=== PATIENT | female | born 1990 | race Caucasian/White ===

== ENCOUNTER 2018-04-09 08:03 | Inpatient (IN) | payer BC ==
--- NOTE | 2018-04-09 08:58 | HP ---
General Information - Reason for Visit gestational hypertension 40 0/7 weeks - General Information Maternal Age: 27 Grav: 2 Para: 0 SAB: 1 IEA: 0 Estimated Due Date: 04/09/18 Determined By: Early Ultrasound Maternal Blood Type and Rh: A Positive - Results this Serology/RPR Result: Non-Reactive Rubella Result: Immune HBsAg Result: Negative HIV Result: Negative GBS Culture Result: Negative Past Medical History Delivery History: See Records Pertinent Past Medical History: See Records Pertinent Past Surgical History: See Records Pertinent Family History: See Records - Antepartal Records Antepartal Records: Reviewed, Complicated by: - gestational hypertension Review of Systems Constitutional: Comfortable CV Complaint: No Respiratory: Shortness of Breath: No Gastrointestinal: No Nausea/Vomiting, Normal Bowel Movement Genitourinary: No Dysuria, No Bleeding Musculoskeletal: No Complaint Neurological: No Headache Movement: Normal Exam Allergies/Adverse Reactions: Allergies penicillin G Allergy (Mild, Verified 04/09/18 07:21) Hives T: 98.4 P: 88 RR: 16 BP :131/69 - Measurements Height: 5 ft 4 in Weight: 202 lb Weight in lbs: 202.543435 Body Mass Index (BMI): 34.7 Pre- Weight: 155 lb Weight Gained This : 47 lbs and 0 ozs - Exam Breast: Breast Exam Deferred CVA: No CVA Tenderness Extremities: No Edema Heart: Normal Rhythm/Heart Sounds HEENT: No Significant Findings Lungs: Clear Bilaterally Rectal: Rectal Exam Deferred Reflexes: DTR 2+ Thyroid: No Thyromegaly - Abdominal Exam Abdomen Exam: Non-Tender - Ultrasound/Biophysical Profile Ultrasound Status: Not Done Targeted Exam Findings Cervical Exam: 1cm Effacement: 80% Station: -2 Presenting Part: Vertex Membrane Status: Intact EFM Findings - External Monitor Findings External Monitor Findings: Accelerations Present, No Pattern of Variable or Late Decelerations, Variability Moderate Contractions: Irregular Assessment/Plan - Obstetrical Risk Factors Obstetrical Risk Factors: Gestational Hypertension - Plan Plan: Admit - Anticipate Vaginal Delivery
[2018-04-09] MEDS ORDERED: Oxytocin in LR* 20 UNITS/1,000 ML BAG IVPB SCH (09:00)
[2018-04-09 10:02] LABS: ABS Basophils 0 10^3/ul (0-0.2); ABS Eosinophils 0 10^3/ul (0-0.6); ABS Lymphocytes 1.3 10^3/ul (1.0-4.8); ABS Monocytes 0.3 10^3/ul (0-0.8); ABS Nucleated RBC 0 10^3/ul; Eosinophil % 0.4 % (0-6); Hematocrit 32 % (35-47); Lymphocyte % 16.9 % (25-47); Mean Corpuscular HGB Conc 35 g/dl (31-36); Mean Corpuscular Hemoglobin 30 pg (27-31); Mean Corpuscular Volume 86 fL (80-97); Nucleated Red Blood Cells % 0; Platelet Count 207 10^3/ul (150-450); Red Blood Count 3.69 10^6/ul (4.00-5.40); Red Cell Distribution Width 14 % (10.5-15); White Blood Count 7.7 10^3/ul (3.5-10.8)
[2018-04-09] MEDS ORDERED: Nalbuphine* 10 MG/ML 1 ML VIAL IV ONE (11:59)
[2018-04-09] MEDS ORDERED: Promethazine INJ(RESTRICTED)* 25 MG/ML 1 ML VIAL IV PRN (23:57)
[2018-04-10] MEDS ORDERED: Promethazine INJ(RESTRICTED)* 25 MG/ML 1 ML VIAL ONE (00:06)
[2018-04-10] MEDS ORDERED: Nalbuphine* 10 MG/ML 1 ML VIAL ONE (00:06)
[2018-04-10] MEDS ORDERED: Witch Hazel PAD* JAR TOPICAL PRN (07:30)
[2018-04-10] MEDS ORDERED: Dibucaine 1% 28.35 GM TUBE PR PRN (07:30)
[2018-04-10] MEDS ORDERED: Glycerin ADULT SUPP PR PRN (07:30)
[2018-04-10] MEDS ORDERED: Acetaminophen TAB* 325 MG PO PRN (07:30)
--- NOTE | 2018-04-10 07:40 | PROCNOTE ---
[facility] OB: Delivery Note - Delivery A Date of : 04/10/18 Time of : 06:46 Wis[place] Sex: Female Weight at : 6 lb 13 oz Score 1 Minute: 9 Score 5 Minutes: 9 Gestational Age in Weeks and Days at Delivery: 40 Weeks and 1 Days Delivery Method: Spontaneous Vaginal Labor: Spontaneous Did Patient attempt ?: N/A, No Previous Amniotic Fluid: Clear Estimated Blood Loss: 300 Anesthesia/Analgesia: None Delivered By: Margie Alva - Nursery Level of Nursery: Regular/Bedside - Perineum Perineal Injury: 2nd Degree Perineal Repair: By Delivering Practioner - Events Delivery Events of Note: Pitocin During Labor, Pushed > 3 Hours, Internal Scalp EKG
[2018-04-10] MEDS ORDERED: Oxytocin in LR* 20 UNITS/1,000 ML BAG IVPB SCH (08:00)
[2018-04-10] MEDS ORDERED: Simethicone TAB* 80 MG TAB.CHEW PO SCH (08:30)
[2018-04-10] MEDS: Docusate CAP* 100 MG PO SCH ×2 (09:24→18:09)
[2018-04-10] MEDS: Levothyroxine TAB* 50 MCG TAB PO SCH (09:34)
[2018-04-10] MEDS: Ibuprofen TAB* 600 MG PO PRN ×2 (12:19→18:09)
[2018-04-11 04:20] VITALS: BP 107/54
[2018-04-11] MEDS: Docusate CAP* 100 MG PO SCH ×3 (05:37→14:05)
[2018-04-11 07:04] LABS: ABS Basophils 0 10^3/ul (0-0.2); ABS Eosinophils 0 10^3/ul (0-0.6); ABS Lymphocytes 2.2 10^3/ul (1.0-4.8); ABS Monocytes 0.5 10^3/ul (0-0.8); ABS Neutrophils 7.3 10^3/ul (1.5-7.7); ABS Nucleated RBC 0 10^3/ul; Eosinophil % 0.3 % (0-6); Hematocrit 30 % (35-47); Hemoglobin 10.3 g/dl (12.0-16.0); Mean Corpuscular HGB Conc 34 g/dl (31-36); Mean Corpuscular Hemoglobin 30 pg (27-31); Mean Corpuscular Volume 88 fL (80-97); Mean Platelet Volume 7.9 fL (7.4-10.4); Nucleated Red Blood Cells % 0.1; Platelet Count 193 10^3/ul (150-450); Red Blood Count 3.44 10^6/ul (4.00-5.40); Red Cell Distribution Width 14 % (10.5-15); White Blood Count 10.2 10^3/ul (3.5-10.8)
[2018-04-11] MEDS: Ibuprofen TAB* 600 MG PO PRN ×2 (07:45→14:05)
[2018-04-11] MEDS: Levothyroxine TAB* 50 MCG TAB PO SCH (07:47)
[2018-04-11] MEDS ORDERED: Ferrous Gluconate TAB* 324 MG TAB PO SCH (09:00)
== END 2018-04-11 15:20 | disposition home or self-care (01) | DRG 560 ==
LOC: MCHOBOUT 08:03 → MCHOB 08:58
PROVIDERS: ADMIT Obstetrics & Gynecology; ATTEND Obstetrics & Gynecology
PROC: 3E033VJ Introduction of Other Hormone into Peripheral Vein, Percutaneous Approach (ICD-10-PCS; principal; 2018-04-10)
PROC: 10E0XZZ Delivery of Products of Conception, External Approach (ICD-10-PCS; 2018-04-10)
PROC: 4A1HXCZ Monitoring of Products of Conception, Cardiac Rate, External Approach (ICD-10-PCS; 2018-04-10)
PROC: 0KQM0ZZ Repair Perineum Muscle, Open Approach (ICD-10-PCS; 2018-04-10)
PROC: 10H073Z Insertion of Monitoring Electrode into Products of Conception, Via Natural or Artificial Opening (ICD-10-PCS; 2018-04-10)
PROC: 4A1H74Z Monitoring of Products of Conception, Cardiac Electrical Activity, Via Natural or Artificial Opening (ICD-10-PCS; 2018-04-10)
DX: O13.4 Gestational [pregnancy-induced] hypertension without significant proteinuria, complicating childbirth (principal); Z37.0 Single live birth; Z3A.40 40 weeks gestation of pregnancy; Z88.0 Allergy status to penicillin; O48.0 Post-term pregnancy; O99.284 Endocrine, nutritional and metabolic diseases complicating childbirth; E03.9 Hypothyroidism, unspecified; O70.1 Second degree perineal laceration during delivery
CPT/HCPCS: 36415; 84112; 85025; 86850; 86900; 86901; A9270-GY; J2300; J2550

== ENCOUNTER 2020-06-20 02:32 | Inpatient (IN) ==
[2020-06-20] MEDS ORDERED: Lactated Ringers 1000 ml BAG 1,000 ML IV ONE (04:02)
[2020-06-20] MEDS ORDERED: Buffered Lidocaine 1% SYRIN 1 ml INTRADERM ONE (04:02)
[2020-06-20] MEDS ORDERED: Lactated Ringers 1000 ml BAG 1,000 ML IV SCH ×2 (05:00→11:00)
[2020-06-20 06:44] LABS: Urine Benzodiazepine Screen None Detected (None Detect); Urine Cannabinoids Screen None Detected (None Detect); Urine Opiates Screen None Detected (None Detect)
[2020-06-20] MEDS ORDERED: Dibucaine 1% OINT 28.35 GM TUBE PR PRN (10:02)
[2020-06-20] MEDS ORDERED: Witch Hazel PAD JAR TOPICAL PRN (10:02)
[2020-06-20] MEDS ORDERED: Oxytocin 10 UNITS/ML 1 ML VIAL IM ONE (10:02)
[2020-06-20] MEDS ORDERED: Lidocaine 1% VIAL 10 MG/ML VIAL ONE (12:10)
[2020-06-20] MEDS ORDERED: Oxytocin 10 UNITS/ML 1 ML VIAL ONE (12:10)
[2020-06-21 07:28] LABS: ABS Lymphocytes 1.8 10^3/ul (1.0-4.8); ABS Monocytes 0.4 10^3/ul (0-0.8); ABS Neutrophils 6.2 10^3/ul (1.5-7.7); Eosinophil % 0.6 %; Hematocrit 30 % (35-47); Hemoglobin 10.3 g/dL (12.0-16.0); Lymphocyte % 21.4 %; Mean Corpuscular HGB Conc 35 g/dL (31-36); Mean Corpuscular Hemoglobin 29 pg (27-31); Mean Corpuscular Volume 85 fL (80-97); Mean Platelet Volume 8.2 fL (7.4-10.4); Platelet Count 197 10^3/uL (150-450); Red Blood Count 3.52 10^6 /uL (3.70-4.87); Red Cell Distribution Width 15 % (10-15); White Blood Count 8.4 10^3/uL (3.5-10.8)
[2020-06-22 08:08] VITALS: BP 122/64
== END 2020-06-22 11:31 | disposition home or self-care (01) | DRG 560 ==
LOC: MCHOBOUT 02:32 → MCHOB 03:06
PROVIDERS: ADMIT Midwife; ATTEND Midwife